=== PATIENT | female | born 1945 | race Asian ===

== ENCOUNTER 2023-06-15 11:49 | Emergency (ER) | payer MEDICARE ==
[~2023-06-15] VITALS: Ht 152.4 cm; Wt 52.0 kg
[2023-06-15 11:55] VITALS: BP 136/73; RESP 20; TEMP 98.3; O2SAT 100
[2023-06-15 11:56] VITALS: PULSE 91
== END 2023-06-15 14:41 | disposition left against medical advice (07) ==
LOC: ER 11:49
DX: K62.5 Hemorrhage of anus and rectum (principal); Z53.21 Procedure and treatment not carried out due to patient leaving prior to being seen by health care provider
CPT/HCPCS: 99281